=== PATIENT | male | born 1995 | race African-American/Black ===

== ENCOUNTER 2023-02-23 19:53 | Inpatient (IN) | payer BC, OTHER ==
[2023-02-23] MEDS ORDERED: SODIUM CHLORIDE 0.9% 500 ML INFUS.BAG IV ONE ×3 (20:12→21:19)
[2023-02-23] MEDS ORDERED: FAMOTIDINE 20 MG/50 ML IVPB 20 MG/50 ML MG IVPB ONE ×2 (20:19→20:29)
[2023-02-23] MEDS ORDERED: ACETAMINOPHEN 1000 MG/100 ML BAG IVPB ONE (20:19)
[2023-02-23] MEDS ORDERED: ONDANSETRON 4 MG/2 ML VIAL IVPUSH ONE (20:24)
[2023-02-23] MEDS ORDERED: ONDANSETRON 4 MG/2 ML VIAL ONE (20:29)
[2023-02-23] MEDS ORDERED: ACETAMINOPHEN INJECTION 100 ML IVPB ONE (20:29)
[2023-02-23 21:08] LABS: VENOUS BASE EXCESS -11.5 mmol/L (-2-2); VENOUS O2 SATURATION 45.7 % (70-80); VENOUS PH 7.235 (7.310-7.410)
[2023-02-23 21:11] LABS: BASO % 0.3 % (0-2.0); EOS % 0.1 % (0-4.5); HEMOGLOBIN 17.5 GM/dL (11.7-16.9); LYMPH % 19.7 % (8-40); MCHC 33.6 g/dl (32.0-35.9); MEAN CELL VOLUME 83.4 fl (80-96); MEAN PLT VOLUME 10.3 fl (7.5-11.1); MONO % 4.1 % (3.8-10.2); NEUT % 75.8 % (42.8-82.8); PLATELET COUNT 170 10^3/uL (134-434); RBC 6.23 M/mm3 (4.00-5.60); RDW 14.2 % (11.9-15.9); WHITE BLOOD COUNT 9.4 K/mm3 (4.0-10.0)
[2023-02-23] MEDS ORDERED: SODIUM CHLORIDE 1,000 ML IV STA (21:17)
[2023-02-23 21:28] LABS: CHLORIDE 93 mmol/L (98-107); SODIUM 132 mmol/L (136-145)
[2023-02-23 21:31] LABS: ALBUMIN 4.1 g/dl (3.4-5.0); ANION GAP 24 MMOL/L (8-16); BLOOD UREA NITROGEN 43.1 mg/dL (7-18); CO2 15 mmol/L (21-32); MAGNESIUM 2.4 mg/dL (1.8-2.4)
[2023-02-23 21:34] LABS: CREATININE 2.1 mg/dL (0.55-1.3); PHOSPHOROUS 4.7 mg/dL (2.5-4.9); SGOT/AST 19 U/L (15-37); SGPT/ALT 30 U/L (13-61)
[2023-02-23 21:35] LABS: TOT PROT 8.3 g/dl (6.4-8.2)
[2023-02-23 21:36] LABS: BILIRUBIN,TOTAL 0.5 mg/dL (0.2-1)
[2023-02-23 21:37] LABS: ALK PHOS 137 U/L (45-117)
[2023-02-23 21:45] LABS: GLUCOSE,RANDOM 440 mg/dL (74-106)
[2023-02-23] MEDS ORDERED: INSULIN REGULAR HUMAN 100 UNITS/ML *VIAL IVPUSH ONE (21:49)
[2023-02-23] MEDS ORDERED: INSULIN REGULAR HUMAN 100 UNITS/ML *VIAL* (FOR IVP) IVPUSH ONE (21:51)
[2023-02-23] MEDS ORDERED: DEXTROSE 50%-WATER - 25 GM/50 ML VIAL IVPUSH PRN (21:52)
[2023-02-23] MEDS ORDERED: INSULIN REGULAR 100 UNITS in SODIUM CHLORIDE 99 ML IVPB SCH (22:00)
[2023-02-23] MEDS ORDERED: D5-1/2NS+20 MEQ KCL - 20 MEQ/1,000 ML INFUS.BAG IV SCH (22:15)
[2023-02-23] MEDS ORDERED: POTASSIUM CHLORIDE 10 MEQ in SODIUM CHLORIDE 1,000 ML IVPB SCH (22:15)
[2023-02-23] MEDS ORDERED: INSULIN REGULAR HUMAN 100 UNITS/ML *VIAL ONE (22:17)
[2023-02-23] MEDS: MUPIROCIN 2% TOPICAL OINTMENT FOR DECOLONIZATION NS SCH (23:23)
[2023-02-24] MEDS ORDERED: D5-1/2NS+20 MEQ KCL - 20 MEQ/1,000 ML INFUS.BAG IV SCH (00:30)
[2023-02-24] MEDS ORDERED: INSULIN REGULAR 100 UNITS in SODIUM CHLORIDE 99 ML IVPB SCH (00:30)
[2023-02-24 01:22] LABS: BLOOD UREA NITROGEN 31.7 mg/dL (7-18)
[2023-02-24 01:25] LABS: CREATININE 1.5 mg/dL (0.55-1.3)
[2023-02-24 01:26] LABS: BILIRUBIN,TOTAL 0.4 mg/dL (0.2-1)
[2023-02-24 01:35] LABS: ALBUMIN 2.9 g/dl (3.4-5.0); CALCIUM 8.2 mg/dL (8.5-10.1)
[2023-02-24 04:31] VITALS: BMI 25.0
[2023-02-24] MEDS: INSULIN (LEVEMIR) 100 UNITS/ML UNITS SQ SCH ×2 (06:54→10:34)
[2023-02-24 07:06] LABS: BASO % 0.4 % (0-2.0); EOS % 0.8 % (0-4.5); HEMATOCRIT 38.1 % (35.4-49); HEMOGLOBIN 13.2 GM/dL (11.7-16.9); LYMPH % 44.1 % (8-40); MCHC 34.7 g/dl (32.0-35.9); MEAN CELL VOLUME 80.8 fl (80-96); MEAN PLT VOLUME 10.4 fl (7.5-11.1); MONO % 6.7 % (3.8-10.2); PLATELET COUNT 141 10^3/uL (134-434); RBC 4.71 M/mm3 (4.00-5.60); RDW 13.5 % (11.9-15.9); WHITE BLOOD COUNT 8.1 K/mm3 (4.0-10.0)
[2023-02-24 08:58] LABS: BLOOD UREA NITROGEN 23.6 mg/dL (7-18); CALCIUM 8.2 mg/dL (8.5-10.1)
[2023-02-24 09:01] LABS: CREATININE 1.4 mg/dL (0.55-1.3)
[2023-02-24 09:27] LABS: N-TERMINAL BNP 13.4 pg/ml (5-125)
[2023-02-24] MEDS ORDERED: LACTATED RINGERS SOLUTION 1,000 ML/1,000 ML INFUS.BAG IV SCH (09:45)
[2023-02-24] MEDS: MUPIROCIN 2% TOPICAL OINTMENT FOR DECOLONIZATION NS SCH ×2 (10:35→21:59)
[2023-02-24] MEDS: INSULIN SLIDING SCALE (NOVOLOG) 1 VIAL SQ SCH ×3 (10:53→21:56)
[2023-02-24 14:52] LABS: PH,URINE 5.5 (5.0-8.0); URINE APPEARANCE CLEAR; URINE BILIRUBIN NEGATIVE (NEGATIVE); URINE COLOR YELLOW; URINE GLUCOSE (UA) 3+ (NEGATIVE); URINE KETONE 3+ (NEGATIVE); URINE LEUK ESTERASE NEGATIVE (NEGATIVE); URINE NITRITE NEGATIVE (NEGATIVE); URINE PROTEIN TRACE (NEGATIVE); URINE UROBILINOGEN 0.2 mg/dL (0.2-1.0)
[2023-02-24] MEDS ORDERED: CHLORHEXIDINE GLUCONATE 4% CLEANSER FOR DECOLONIZATION TP SCH (22:00)
[2023-02-25 05:34] VITALS: RESP 18
[2023-02-25] MEDS: INSULIN (NOVOLOG) ASPART 100 UNITS/ML 10ML VIAL SQ SCH ×3 (06:27→17:34)
[2023-02-25] MEDS: INSULIN SLIDING SCALE (NOVOLOG) 1 VIAL SQ SCH ×3 (06:28→17:34)
[2023-02-25] MEDS ORDERED: LACTATED RINGERS SOLUTION 1,000 ML/1,000 ML INFUS.BAG IV SCH (07:57)
[2023-02-25] MEDS ORDERED: INSULIN (LEVEMIR) 100 UNITS/ML UNITS SQ SCH (08:30)
[2023-02-25] MEDS ORDERED: MUPIROCIN 2% TOPICAL OINTMENT FOR DECOLONIZATION NS SCH (10:00)
[2023-02-25 10:31] VITALS: BP 110/56; PULSE 101; TEMP 98.6
[2023-02-25 10:54] LABS: ALBUMIN 3.2 g/dl (3.4-5.0); BLOOD UREA NITROGEN 14.3 mg/dL (7-18)
[2023-02-25 10:56] LABS: CREATININE 1.1 mg/dL (0.55-1.3)
[2023-02-25 10:57] LABS: BILIRUBIN,TOTAL 0.6 mg/dL (0.2-1); TOT PROT 6.5 g/dl (6.4-8.2)
[2023-02-25] MEDS ORDERED: POTASSIUM CHLORIDE TABS 10 MEQ TABLET.ER (FP) PO ONE (15:09)
[2023-02-25] MEDS ORDERED: HEPARIN NA (PORCINE) 5,000 UNITS/ML 1ML VIAL SQ SCH (22:00)
[2023-02-25] MEDS ORDERED: CHLORHEXIDINE GLUCONATE 4% CLEANSER FOR DECOLONIZATION TP SCH (22:00)
== END 2023-02-25 18:06 | disposition home or self-care (01) | DRG 420 ==
LOC: JER 19:53 → JERBED 21:35 → JICU 23:07 → J6S 02-24 18:45
PROVIDERS: ADMIT Internal Medicine Pulmonary Disease; ATTEND Internal Medicine Pulmonary Disease
DX: E10.10 Type 1 diabetes mellitus with ketoacidosis without coma (principal); N17.9 Acute kidney failure, unspecified; R00.0 Tachycardia, unspecified; E86.0 Dehydration; R11.2 Nausea with vomiting, unspecified; Z91.199 Patient's noncompliance with other medical treatment and regimen due to unspecified reason; D72.829 Elevated white blood cell count, unspecified
CPT/HCPCS: 0241U-QW; 36415; 71045-TC-FY; 80048; 80053; 81003; 82010; 82803; 82962; 83036; 83735; 83880; 83930; 84100; 84300; 84436; 84443; 84479; 84484; 85025; 85730; 87086; 93005; 93010; 99285-25